=== PATIENT | male | born 1985 | race Hispanic/Latino ===

== ENCOUNTER 2022-02-17 14:19 | Emergency (ER) | payer SELFPAY ==
[2022-02-17] MEDS ORDERED: SODIUM CHLORIDE 0.9% 1000 ML 1,000 ML IV ONE (15:29)
[2022-02-17] MEDS ORDERED: ACETAMINOPHEN 500 MG TAB PO ONE (15:30)
--- NOTE | 2022-02-17 15:31 | Event Note ---
ED Screening Note ED Screening Note: FEVER/TACHY/HYPOTENSION NO COVID SHOTS TO FT PUI This initial assessment/diagnostic orders/clinical plan/treatment(s) is/are subject to change based on patients health status, clinical progression and re- assessment by fellow clinical providers in the ED. Further treatment and workup at subsequent clinical providers discretion. Patient/guardian urged not to elope from the ED as their condition may be serious if not clinically assessed and managed. Initial orders include: RO COVID PNA
--- NOTE | 2022-02-17 15:55 | XRay Report ---
CHEST 1 VIEW 02/17/2022 3:36 PM INDICATION / CLINICAL INFORMATION: FEVER. COMPARISON: None available. FINDINGS: SUPPORT DEVICES: None. HEART / MEDIASTINUM: No significant abnormality. LUNGS / PLEURA: No significant pulmonary or pleural abnormality. No pneumothorax. ADDITIONAL FINDINGS: No significant additional findings. IMPRESSION: 1. No acute findings. Signer Name: Sb Condon Jr, MD Signed: 02/17/2022 3:50 PM Workstation Name: [id number]
--- NOTE | 2022-02-17 16:30 | Emergency Department Report ---
ED General Adult HPI - General Chief complaint: Weakness Stated complaint: FEVER/DIZZY/NAUSEA/CHILLS Time Seen by Provider: 02/17/22 15:28 Source: patient Mode of arrival: Ambulatory Limitations: No Limitations - History of Present Illness Initial comments: 36-year-old male patient presents with complaints of sudden onset of fever, cough, mild shortness of breath upon waking this morning. Cough is nonproductive. He states mild congestion and sore throat. He is not vaccinated for COVID. No loss of taste or smell, chest pain, abdominal pain, nausea/vomiting/diarrhea, or urinary symptoms per patient. He denies any past medical history. Patient has not tried any medication for his symptoms. Severity scale (0 -10): 10 - Related Data Previous Rx's Medication Instructions Recorded Last Taken Type Ibuprofen [Motrin 800 MG tab] 800 mg PO Q8HR PRN #20 tablet 02/17/22 Unknown Rx Allergies Allergy/AdvReac Type Severity Reaction Status Date / Time No Known Allergies Allergy Verified 02/17/22 15:26 ED Review of Systems ROS: Stated complaint: FEVER/DIZZY/NAUSEA/CHILLS Other details as noted in HPI Constitutional: chills, fever, malaise. denies: diaphoresis, weakness Respiratory: cough, shortness of breath Cardiovascular: denies: chest pain Gastrointestinal: denies: abdominal pain, nausea, vomiting Genitourinary: denies: urgency, dysuria, frequency, hematuria Musculoskeletal: denies: back pain Skin: denies: rash, lesions Neurological: denies: headache ED Past Medical Hx - Medications Home Medications: Home Medications Medication Instructions Recorded Confirmed Last Taken Type Ibuprofen [Motrin 800 MG tab] 800 mg PO Q8HR PRN #20 tablet 02/17/22 Unknown Rx ED Physical Exam - General Limitations: No Limitations General appearance: alert, in no apparent distress - Head Head exam: Present: atraumatic, normocephalic - Eye Eye exam: Present: normal appearance. Absent: scleral icterus - ENT ENT exam: Present: normal exam - Neck Neck exam: Present: normal inspection, lymphadenopathy - Respiratory Respiratory exam: Present: normal lung sounds bilaterally. Absent: respiratory distress, chest wall tenderness - Cardiovascular Cardiovascular Exam: Present: normal rhythm, tachycardia, normal heart sounds - GI/Abdominal GI/Abdominal exam: Present: soft. Absent: tenderness - Extremities Exam Extremities exam: Present: full ROM. Absent: calf tenderness - Back Exam Back exam: Present: normal inspection - Neurological Exam Neurological exam: Present: alert, oriented X3, normal gait - Psychiatric Psychiatric exam: Present: normal affect, normal mood - Skin Skin exam: Present: warm, dry, intact, normal color. Absent: rash ED Course Vital Signs 02/17/22 02/17/22 15:26 17:50 Temperature 100.9 F H 98.8 F Pulse Rate 117 H 98 H Respiratory 16 20 Rate Blood Pressure 90/44 90/44 [Left] O2 Sat by Pulse 97 94 Oximetry ED Medical Decision Making - Lab Data Result diagrams: 02/17/22 15:54 02/17/22 15:54 Lab Results 02/17/22 02/17/22 02/17/22 Range/Units 15:54 15:54 15:54 WBC 5.7 (4.5-11.0) K/mm3 RBC 4.34 (3.65-5.03) M/mm3 Hgb 14.5 (11.8-15.2) gm/dl Hct 40.5 (35.5-45.6) % MCV 93 (84-94) fl MCH 33 H (28-32) pg MCHC 36 H (32-34) % RDW 12.1 L (13.2-15.2) % Plt Count 150 (140-440) K/mm3 Lymph % (Auto) 3.3 L (13.4-35.0) % Wilkin % (Auto) 8.2 H (0.0-7.3) % Eos % (Auto) 1.8 (0.0-4.3) % Baso % (Auto) 0.6 (0.0-1.8) % Lymph # (Auto) 0.2 L (1.2-5.4) K/mm3 Wilkin # (Auto) 0.5 (0.0-0.8) K/mm3 Eos # (Auto) 0.1 (0.0-0.4) K/mm3 Baso # (Auto) 0.0 (0.0-0.1) K/mm3 Seg Neutrophils % 86.1 H (40.0-70.0) % Seg Neutrophils # 4.9 (1.8-7.7) K/mm3 Sodium 138 (137-145) mmol/L Potassium 4.5 (3.6-5.0) mmol/L Chloride 101.2 (98-107) mmol/L Carbon Dioxide 24 (22-30) mmol/L Anion Gap 17 mmol/L BUN 9 (9-20) mg/dL Creatinine 1.1 (0.8-1.3) mg/dL Estimated GFR > 60 ml/min BUN/Creatinine Ratio 8 % Glucose 108 H (75-100) mg/dL Lactic Acid 2.10 H* (0.7-2.0) mmol/L Calcium 9.6 (8.4-10.2) mg/dL Total Bilirubin 0.50 (0.1-1.2) mg/dL AST 42 H (5-40) units/L ALT 71 H (7-56) units/L Alkaline Phosphatase 68 (35-129) units/L Total Protein 6.8 (6.3-8.2) g/dL Albumin 4.6 (3.9-5) g/dL Albumin/Globulin Ratio 2.1 % - Radiology Data Radiology results: report reviewed CHEST 1 VIEW 02/17/2022 3:36 PM INDICATION / CLINICAL INFORMATION: FEVER. COMPARISON: None available. FINDINGS: SUPPORT DEVICES: None. HEART / MEDIASTINUM: No significant abnormality. LUNGS / PLEURA: No significant pulmonary or pleural abnormality. No pneumothorax. ADDITIONAL FINDINGS: No significant additional findings. IMPRESSION: 1. No acute findings. - Medical Decision Making 36-year-old male patient presents with complaints of sudden onset of fever, cough, mild shortness of breath upon waking this morning. Cough is nonproductive. He states mild congestion and sore throat. He is not vaccinated for COVID. No loss of taste or smell, chest pain, abdominal pain, nausea/vomiting/diarrhea, or urinary symptoms per patient. He denies any past medical history. Patient has not tried any medication for his symptoms. Minimal elevation of lactic acid noted at 2.1. Patient given 2100 L of saline. Tylenol also given. Heart rate now 84. Blood pressure now 99/63. He states he is feeling better. Patient remained at 98% on room air with walking pulse ox. He is nontoxic-appearing. Patient discussed with Dr. Darden who agrees with disposition for home and discussion of likely COVID diagnosis. Discussed quarantine, home treatment, and signs and symptoms that should prompt immediate ED evaluation, patient verbalizes understanding. Critical care attestation.: If time is entered above; I have spent that time in minutes in the direct care of this critically ill patient, excluding procedure time. ED Disposition Clinical Impression: Suspected COVID-19 virus infection Disposition: HOME / SELF CARE / HOMELESS Is pt being admited?: No Condition: Stable Instructions: COVID-19, COVID-19 Frequently Asked Questions, COVID-19: How to Protect Yourself and Others - CDC, Prevent the Spread of COVID-19 if You Are Sick - [facility] [place] Prescriptions: Ibuprofen [Motrin 800 MG tab] 800 mg PO Q8HR PRN #20 tablet PRN Reason: fever/bodyaches Referrals: [facility] [Provider Group] - 3-5 Days
[2022-02-17] MEDS ORDERED: SODIUM CHLORIDE 0.9% 1000 ML IV SOLN IV ONE (16:31)
[2022-02-17 17:32] LABS: Basophils % (Auto) 0.6 % (0.0-1.8); Eosinophils # (Auto) 0.1 K/mm3 (0.0-0.4); Eosinophils % (Auto) 1.8 % (0.0-4.3); Hematocrit 40.5 % (35.5-45.6); Hemoglobin 14.5 gm/dl (11.8-15.2); Lymphocytes # (Auto) 0.2 K/mm3 (1.2-5.4); Lymphocytes % (Auto) 3.3 % (13.4-35.0); Mean Corpuscular HGB Conc 36 % (32-34); Mean Corpuscular Volume 93 fl (84-94); Monocytes # (Auto) 0.5 K/mm3 (0.0-0.8); Monocytes % (Auto) 8.2 % (0.0-7.3); Platelet Count 150 K/mm3 (140-440); Red Blood Count 4.34 M/mm3 (3.65-5.03); Red Cell Distribution Width 12.1 % (13.2-15.2)
[2022-02-17 17:57] LABS: Alanine Aminotransferase 71 units/L (7-56); Albumin 4.6 g/dL (3.9-5); BUN/Creatinine Ratio 8; Blood Urea Nitrogen 9 mg/dL (9-20); Calcium 9.6 mg/dL (8.4-10.2); Hemolysis Index 11
[2022-02-17 19:42] VITALS: BP 96/63
[2022-02-17] MEDS ORDERED: IBUPROFEN 800 MG TAB PO STA (19:42)
== END 2022-02-17 21:52 | disposition home or self-care (01) ==
LOC: ED 14:19
DX: Z20.822 Contact with and (suspected) exposure to COVID-19 (principal)
CPT/HCPCS: 36415; 71045; 80053; 82140; 85025; 87040; 96361; 96374; 99284; J7030